=== PATIENT | male | born 1980 | race Two or more races ===

== ENCOUNTER 2023-04-06 13:42 | Emergency (ER) | payer MEDICAID ==
[~2023-04-06] VITALS: Ht 182.9 cm; Wt 102.1 kg
[2023-04-06] MEDS ORDERED: ACETAMINOPHEN ES 500 MG TABLET ONE (14:28)
[2023-04-06] MEDS ORDERED: IV NS 0.9% 1,000 ML IV ONE (14:30)
[2023-04-06] MEDS ORDERED: ACETAMINOPHEN 325 MG TABLET PO ONE (14:30)
[2023-04-06 14:38] LABS: BASOPHILS # (AUTO) 0.1 K/uL (0.0-0.2); BASOPHILS % (AUTO) 0.3 % (0.0-2.0); EOSINOPHILS % (AUTO) 0.1 % (0.0-6.0); HEMATOCRIT 45 % (39-51); LYMPHOCYTES # (AUTO) 0.9 K/uL (0.8-4.8); LYMPHOCYTES % (AUTO) 4.3 % (20.0-44.0); MEAN CORPUSCULAR HEMOGLOBIN 31 PG (26.0-33.0); MEAN CORPUSCULAR HGB CONC 33 g/dl (31.0-36.0); MEAN CORPUSCULAR VOLUME 91 fL (80-96); MONOCYTES # (AUTO) 1.2 K/uL (0.1-1.30); MONOCYTES % (AUTO) 5.8 % (2.0-12.0); NEUTROPHILS # (AUTO) 17.8 K/uL (1.8-8.9); NEUTROPHILS % (AUTO) 89.5 % (43.0-81.0); PLATELET COUNT (AUTO) 301 K/uL (150-450); RED BLOOD CELL COUNT(AUTO) 4.93 MIL/uL (4.5-6.0); RED CELL DISTRIBUTION WIDTH 12.9 % (11.5-15.0); WHITE BLOOD COUNT (AUTO) 19.9 K/uL (4.3-11.0)
[2023-04-06 14:40] LABS: APPEARANCE,URINE CLEAR (CLEAR); BILIRUBIN,URINE NEGATIVE (NEGATIVE); BLOOD, URINE NEGATIVE Ery/uL (NEGATIVE); COLOR,URINE YELLOW (YELLOW); KETONES,URINE NEGATIVE (NEGATIVE); LEUKOCYTE ESTERASE ,URINE NEGATIVE (NEGATIVE); NITRITE, URINE NEGATIVE (NEGATIVE); PROTEIN,URINE NEGATIVE (NEGATIVE); UGLUCOSE NEGATIVE (NEGATIVE)
[2023-04-06 14:51] LABS: CALCIUM, SERUM 8.8 mg/dL (8.5-10.1); POTASSIUM 3.7 mmol/L (3.5-5.1)
[2023-04-06] MEDS ORDERED: BENZ-13 PO (15:59)
[2023-04-06] MEDS ORDERED: IBUP-1953 PO (15:59)
[2023-04-06] MEDS ORDERED: TYL2T PO (15:59)
[2023-04-06 16:09] VITALS: BP 131/75; TEMP 98.9; O2SAT 97
== END 2023-04-06 16:09 | disposition home or self-care (01) ==
LOC: ER 13:42
DX: B34.9 Viral infection, unspecified (principal); Z20.822 Contact with and (suspected) exposure to COVID-19
CPT/HCPCS: 99284; 96360; 71045; 87426; 87804 ×2; 85025; 80048; 83605; 81003; 36415; J7030; C9803